=== PATIENT | male | born 1985 | race Caucasian/White ===

== ENCOUNTER 2018-10-14 15:19 | Emergency (ER) | payer OTHER ==
[~2018-10-14] VITALS: Ht 180.3 cm; Wt 102.1 kg
[2018-10-14 15:25] VITALS: BP 162/109
== END 2018-10-14 15:52 | disposition home or self-care (01) ==
LOC: M.ERS 15:19
DX: T63.461A Toxic effect of venom of wasps, accidental (unintentional), initial encounter (principal); L53.9 Erythematous condition, unspecified; I10 Essential (primary) hypertension; Y92.89 Other specified places as the place of occurrence of the external cause